=== PATIENT | female | born 1985 | race Caucasian/White ===

== ENCOUNTER 2016-11-27 18:12 | Emergency (ER) | payer BC ==
[2016-11-27] MEDS ORDERED: Ketorolac 60 MG/2 ML SDV IM ONE (18:42)
[2016-11-27] MEDS ORDERED: methylPREDNISolone Sodium Succinate 125 MG/2 ML SDV IVPUSH ONE (18:44)
[2016-11-27] MEDS ORDERED: methylPREDNISolone Sodium Succinate 125 MG/2 ML SDV IM ONE (18:45)
--- NOTE | 2016-11-27 18:51 | EDM.PDOC ---
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 Review of Systems: As per history of present illness and below otherwise all systems reviewed and negative. Past medical history: As per history of present illness and as reviewed below otherwise noncontributory. Surgical history: As per history of present illness and as reviewed below otherwise noncontributory. Social history: No reported history of drug or alcohol abuse. Family history: As per history of present illness and as reviewed below otherwise noncontributory. Physical exam: Alert woman who is very upset that I will not do an MRI in the emergency department. He is answering questions in full sentences without any shortness of breath. She is nontoxic in appearance. HEENT: Atraumatic, normocehpalic, pupils reactive, negative for conjunctival pallor or scleral icterus, mucous membranes moist, throat clear, neck supple, nontender, trachea midline. Lungs: Clear to auscultation, breath sounds equal bilaterally, chest non tender. Heart: S1S2, regular, negative for clicks, rubs, or JVD. Abdomen: Soft, nondistended, nontender. Negative for masses or hepatossplenmegaly. Negative for costovertebral tenderness. Pelvis: Stable nontender. Genitourinary: Deferred. Rectal: Deferred Extremities: Atraumatic, negative for cords or calf pain. Neurovascular unremarkable. Neuro: Awake, alert, oriented. Cranial nerves II through XII unremarkable. Cerebellum unremarkable. Motor and sensory unremarkable throughout. Exam nonfocal. Diagnostics: [] Therapeutics: []Solu-Medrol IM Toradol IM Referred to Dr. Kowalski Impression: []Low back pain Plan: []Discharged to home Prescription for Medrol Dosepak Referred to Dr. Kowalski Pain medication diclofenac Definitive disposition and diagnosis as appropriate pending reevaluation and review of above. Left Lower Back Pain Score (Numeric/FACES): 5 - Related Data Allergies Allergy/AdvReac Type Severity Reaction Status Date / Time No Known Allergies Allergy Verified 11/02/13 11:07 Home Meds: Home Meds Diclofenac Sodium [IMW: Diclofenac Sodium] 75 mg PO .TWICE DAILY W MEALS #20 tab.ec 11/27/16 [Rx] Phentermine HCl 30 mg PO DAILY 11/27/16 [History] Progesterone 20 mg VAG DAILY 11/27/16 [History] methylPREDNISolone [Medrol] 4 mg PO ASDIRECTED #1 dosepk 11/27/16 [Rx] Social & Family History - Tobacco Use Smoking Status *Q: Never Smoker - Alcohol Use Days Per Week of Alcohol Use: 0 - Recreational Drug Use Recreational Drug Use: No ED ROS GENERAL - Review of Systems Review Of Systems: ROS reveals no pertinent complaints other than HPI. ED EXAM,LOWER BACK PAIN/INJURY - Physical Exam Exam: See Below (See dictation) Course - Vital Signs Last Recorded V/S: Last Vital Signs Temp 36.3 C 11/27/16 18:27 Pulse 96 11/27/16 18:27 Resp 18 11/27/16 18:27 BP 179/127 H 11/27/16 18:27 Pulse Ox 100 11/27/16 18:27 - Orders/Labs/Meds Orders: Active Orders 24 hr Category Date Time Status methylPREDNISolone Sod Succ [Solu-MEDROL] Med 11/27/16 18:45 Once 125 mg IM ONETIME ONE methylPREDNISolone Sod Succ [Solu-MEDROL] Med 11/27/16 18:44 Stop Req 125 mg IVPUSH ONETIME ONE Meds: Medications Discontinued Medications Generic Name Dose Route Start Last Admin Trade Name Freq PRN Reason Stop Dose Admin Ketorolac Tromethamine 60 mg 11/27/16 18:42 Toradol IM 11/27/16 18:43 ONETIME ONE Methylprednisolone Sodium Succinate 125 mg 11/27/16 18:44 Solu-Medrol IVPUSH 11/27/16 18:45 ONETIME ONE Departure - Departure Time of Disposition: 18:51 Disposition: Home, Self-Care 01 Condition: Good Clinical Impression: Low back pain Qualifiers: Chronicity: acute Back pain laterality: left Sciatica presence: with sciatica Sciatica laterality: sciatica of left side Qualified Code(s): M54.42 - Lumbago with sciatica, left side - Discharge Information Prescriptions: Diclofenac Sodium [IMW: Diclofenac Sodium] 75 mg PO .TWICE DAILY W MEALS #20 tab.ec methylPREDNISolone [Medrol] 4 mg PO ASDIRECTED #1 dosepk Referrals: PCP,Juliet [Primary Care Provider] - Sierra Kowalski MD [Physician] - Additional Instructions: The following information is given to patients seen in the emergency department who are being discharged to home. This information is to outline your options for follow-up care. We provide all patients seen in our emergency department with a follow-up referral. The need for follow-up, as well as the timing and circumstances, are variable depending upon the specifics of your emergency department visit. If you don't have a primary care physician on staff, we will provide you with a referral. We always advise you to contact your personal physician following an emergency department visit to inform them of the circumstance of the visit and for follow-up with them and/or the need for any referrals to a consulting specialist. The emergency department will also refer you to a specialist when appropriate. This referral assures that you have the opportunity for followup care with a specialist. All of these measure are taken in an effort to provide you with optimal care, which includes your followup. Under all circumstances we always encourage you to contact your private physician who remains a resource for coordinating your care. When calling for followup care, please make the office aware that this follow-up is from your recent emergency room visit. If for any reason you are refused follow-up, please contact the [facility] emergency department at and asked to speak to the emergency department charge nurse. Prescriptions have been sent to your pharmacy for pain medication of diclofenac and a steroid with Medrol Dosepak as directed Referral has been placed for Dr. Sierra Kowalski [facility] - Neurology Professional Building [address] [place] [address], [address] [place] [address] Please call tomorrow for an appointment as a follow-up of the emergency room visit - My Orders Last 24 Hours: My Active Orders 11/27/16 18:44 methylPREDNISolone Sod Succ [Solu-MEDROL] 125 mg IVPUSH ONETIME ONE 11/27/16 18:45 methylPREDNISolone Sod Succ [Solu-MEDROL] 125 mg IM ONETIME ONE - Assessment/Plan Last 24 Hours: My Active Orders 11/27/16 18:44 methylPREDNISolone Sod Succ [Solu-MEDROL] 125 mg IVPUSH ONETIME ONE 11/27/16 18:45 methylPREDNISolone Sod Succ [Solu-MEDROL] 125 mg IM ONETIME ONE
== END 2016-11-27 19:45 | disposition home or self-care (01) ==
LOC: MW.ED 18:12
DX: M54.42 Lumbago with sciatica, left side (principal); Z79.899 Other long term (current) drug therapy
CPT/HCPCS: 96372; 99283; J1885; J2930; 99282